=== PATIENT | male | born 1950 ===

== ENCOUNTER 2016-08-23 08:41 | Outpatient (CLI) | payer MEDICARE, BC | END 2016-08-23 08:42 | disposition home or self-care (01) | LOC: NAVSJIPCSP 08:41 | PROVIDERS: ATTEND Internal Medicine | DX: E78.5 Hyperlipidemia, unspecified (principal) | CPT/HCPCS: 36415; 80061 ==

== ENCOUNTER 2016-12-09 09:33 | Outpatient (CLI) | payer MEDICARE, BC ==
[2016-12-09 12:30] LABS: Cardiac Risk 3.8 (Less than 4.5)
== END 2016-12-09 09:34 | disposition home or self-care (01) ==
LOC: NAVSJIPCSP 09:33
PROVIDERS: ATTEND Internal Medicine
DX: E78.5 Hyperlipidemia, unspecified (principal); Z79.899 Other long term (current) drug therapy
CPT/HCPCS: 36415; 80061